=== PATIENT | male | born 1980 | race Caucasian/White ===

== ENCOUNTER → 2021-09-11 10:45 | Outpatient (BNVA) | payer SELFPAY | PROVIDERS: Family Provider Nurse Practitioner; PCP Nurse Practitioner; Visit Provider Family Medicine | DX: M16.0 Bilateral primary osteoarthritis of hip (principal) | CPT/HCPCS: 73502; 73522 ==

== ENCOUNTER → 2022-11-20 15:44 | Outpatient (BNVA) | payer SELFPAY | PROVIDERS: Family Provider Nurse Practitioner; PCP Family Medicine; Visit Provider Emergency Medicine | DX: S60.456A Superficial foreign body of right little finger, initial encounter (principal); S69.91XA Unspecified injury of right wrist, hand and finger(s), initial encounter; X58.XXXA Exposure to other specified factors, initial encounter | CPT/HCPCS: 73110; 73130 ==

== ENCOUNTER 2024-08-20 08:14 | Emergency (ER) | payer SELFPAY ==
--- NOTE | 2024-08-20 08:19 | USCV_ITS ---
Bradley Arteaga Age: 44 Gender: M : 1980 Exam Date: 08/20/2024 08:31 Ordering Phys: Sudhir Jerry MD Technologist: DILLON Exam Location: [facility] [place] Indication: RT Leg Pain HISTORY: History of deep venous thrombosis. Right lower extremity pain PROCEDURES: Venous duplex imaging was performed in only the right lower extremity. The following venous structures were evaluated: common femoral vein, profunda vein, proximal portion of the greater saphenous vein, superficial femoral vein, and the popliteal vein. In addition, the posterior tibial and peroneal trunk were evaluated. FINDINGS: Thrombus noted in one peroneal vein as well as in the GSV starting above the knee and ending at upper middle thigh CONCLUSIONS There is evidence of acute right lower extremity deep venous thrombosis. There is evidence of acute right lower extremity superficial vein thrombosis. Thrombus in the calf peroneal vein and GSV above the knee Notified Dr Jerry at 0958 08/20/24 Anmol Wan MD (Electronically Signed) Final Date: 20 August 2024 09:59 S
[2024-08-20 08:31] VITALS: BP 185/117; PULSE 77; RESP 14; TEMP 36.7; O2SAT 96; BMI 30.4
--- NOTE | 2024-08-20 08:43 | W.ED.EXTPRO ---
HPI - Extremity Problem General: Chief complaint: Extremity Problem,Nontraumatic Stated complaint: right leg poss blood clot Time Seen by Provider: 08/20/24 08:30 Source: patient Mode of arrival: ambulatory Limitations: no limitations History of Present Illness: 44-year-old male has had a history of factor V Leiden's had blood clots in the past he is concerned he may have a blood clot in his right leg he states has been having pain and swelling in that right leg over the last 4 to 5 days. He denies any shortness of breath he states that he does take Eliquis but ran out of it on Friday. Associated symptoms: Deny chest pain, fever(s) or rash Related Data Previous Rx's Medication Instructions Recorded apixaban 5 mg tablet (Eliquis) 5 mg PO BID #60 tabs 08/20/24 apixaban 5 mg tablet (Eliquis) 10 mg (2 x 5 mg) PO BID 7 days #28 08/20/24 tabs Allergies Allergy/AdvReac Type Severity Reaction Status Date / Time Penicillins Allergy Unknown Unknown Verified 01/14/24 15:52 Review of Systems Const: Denies: fever(s), chills, body aches or change in appetite ENMT: Denies: throat pain or dental pain Card: Denies: chest pain Resp: Denies: dyspnea GI: Denies: abdominal pain, nausea, vomiting or diarrhea Musc: Reports: extremity pain and extremity swelling; Denies: neck pain or back pain Skin/Breast: Denies: rash Neuro: Denies: headache(s) [facility] ED PFSH: Medical History Factor 5 Leiden mutation, heterozygous Social History Smoking and tobacco/nicotine status: never used tobacco/nicotine Alcohol intake: never Substance/Drug Use: never Physical Exam Const: COMMON NORMALS: no acute distress, patient oriented x3 and healthy appearing HENMT: COMMON NORMALS: normocephalic and atraumatic HEAD & SCALP: normocephalic and atraumatic Eye: COMMON NORMALS: conjunctivae normal CONJUNCTIVA: Yes conjunctivae normal Neck/C-Spine: COMMON NORMALS: full ROM and supple Chest: COMMONS NORMALS: normal inspection of the chest Resp: COMMON NORMALS: normal respiratory effort Cardio: COMMON NORMALS: regular rate, regular rhythm and No murmurs present (Cardio) RATE: regular rate RHYTHM: regular rhythm Extremity: COMMON NORMALS: full ROM NARRATIVE EXTREMITY EXAM: Tenderness swelling noted to right calf distal pulses intact Neuro: COMMON NORMALS: patient oriented x3, moves all extremities and no focal motor deficits Psych: COMMON NORMALS: mental status grossly normal, Normal thought process present and cooperative THOUGHT PROCESS: Normal thought process present Skin: COMMON NORMALS: no rashes or lesions noted and no wounds GENERAL SKIN EXAM: no rashes or lesions noted Course Vital Signs: Vital signs: Vital Signs Temperature 98.0 F 08/20/24 08:31 Pulse Rate 77 08/20/24 08:31 Respiratory Rate 14 08/20/24 08:31 Blood Pressure 185/117 08/20/24 08:31 Pulse Oximetry 96 08/20/24 08:31 Oxygen Delivery Me thod Room Air 08/20/24 08:31 MDM - Extremity (Nontraumatic) Medical Decision Making 44-year-old male presented here with right leg pain he does have a DVT in the right leg he has not been taking his Eliquis we will start him back on a loading dose for a week and then his normal dose he is to follow-up with his PCP informed if he has worsening pain or shortness of breath he is return immediately he understands agrees to plan. Medical Records I reviewed the patient's medical records. No radiology studies performed this visit Discharge Plan Discharge Patient Disposition: Home Clinical Impression: DVT (deep venous thrombosis) Condition: Stable Prescriptions: New Eliquis 5 mg tablet 10 mg PO BID 7 Days Qty: 28 0RF Eliquis 5 mg tablet 5 mg PO BID Qty: 60 1RF Discharge Orders: Discharge ED (Routine); Ordered 08/20/24 Ordered By: Sudhir Jerry Referrals: Melissa Duke FNP-C [Family Provider] - Janett David MD [Primary Care Provider] - Discharge Diet: Advance as tolerated Discharge Activity: Resume usual activity Patient Instructions: Deep Vein Thrombosis (ED) Coding Level of Care Code ED Editorial Project Manager for Sumit Najera
[2024-08-20 10:01] VITALS: BP 184/121; PULSE 80; RESP 17; O2SAT 96
[2024-08-20] MEDS: HYDROcodone-acetaminophen 5-325 mg Tablet 1 TAB PO (10:02)
[2024-08-20 10:41] VITALS: BP 180/116; PULSE 80; RESP 19; O2SAT 96
== END 2024-08-20 10:43 | disposition home or self-care (01) ==
PROVIDERS: Emergency Provider Emergency Medicine; Family Provider Nurse Practitioner; PCP Family Medicine
DX: I82.401 Acute embolism and thrombosis of unspecified deep veins of right lower extremity (principal); Z79.01 Long term (current) use of anticoagulants
CPT/HCPCS: 93971; 99284